=== PATIENT | male | born 1980 | race Caucasian/White ===

== ENCOUNTER 2018-03-21 14:47 | Inpatient (IN) | payer OTHER ==
[2018-03-21 17:03] VITALS: BMI 23.7
--- NOTE | 2018-03-21 17:48 | HP ---
"COWS - Scale Resting Pulse: 2= [place] 101-120 Sweatin= Chills/Flushing Restless Observation: 1= Difficult to Sit Still Pupil Size: 2= Moderately Dilated (Pupils = 5 mm) Bone or Joint Aches: 0= None Runny Nose/ Eye Tearin= Nasal Congestion GI Upset > 30mins: 0= None Tremor Observation: 4= Gross Tremor/Twitching Yawning Observation: 0= None Anxiety or Irritability: 4=Extreme Anxiety (and very irritable) Goose Flesh Skin: 0=Smooth Skin COWS Score: 15 CIWA Score - Admission Criteria OASAS Guidelines: Admission for Medically Managed Detox: Requires at least one of the followin. CIWA greater than 12 2. Seizures within the past 24 hours 3. Delirium tremens within the past 24 hours 4. Hallucinations within the past 24 hours 5. Acute intervention needed for co occurring medical disorder 6. Acute intervention needed for co occurring psychiatric disorder 7. Severe withdrawal that cannot be handled at a lower level of care (continued vomiting, continued diarrhea, abnormal vital signs) requiring intravenous medication and/or fluids 8. Admission ROS [facility] Chief Complaint: Here for heroin withdrawal. Allergies/Adverse Reactions: Allergies Allergy/AdvReac Type Severity Reaction Status Date / Time No Known Allergies Allergy Verified 03/21/18 18:08 History of Present Illness: I'm here to get off heroin. Heroin use began at age 16. Uses IV. States does not share needles or works. Cocaine use began at age 16. Uses IV and occ smokes. Marijuana use began at age 14. Nicotine use began at age 12. Denies hx seizures, blackouts or overdoses. Has had prior attempts at methadone treatment but has not been able to maintain sobriety. Last treamtent program in June 2017. Longest length of sobriety, even while on methadone was approx 2 days. Denies significant PMH/PSH. Search Terms: Petey Padron, 1980 Search Date: 03/21/2018 06:24:47 PM The Drug Utilization Report below displays all of the controlled substance prescriptions, if any, that your patient has filled in the last twelve months. The information displayed on this report is compiled from pharmacy submissions to the Department, and accurately reflects the information as submitted by the pharmacies. This report was requested by: Cassie Wells | Reference #: [id number] There are no results for the search terms that you entered. Exam Limitations: No Limitations - Ebola screening Have you traveled outside of the country in the last 21 days: No (N) Have you had contact with anyone from an Ebola affected area: No Have you been sick,other than usual withdrawal symptoms: No Do you have a fever: No - Review of Systems Constitutional: Diaphoresis EENT: reports: Nose Congestion Respiratory: reports: No Symptoms reported Cardiac: reports: No Symptoms Reported GI: reports: No Symptoms Reported : reports: No Symptoms Reported Musculoskeletal: reports: No Symptoms Reported Integumentary: reports: No Symptoms Reported Neuro: reports: Tremors Endocrine: reports: No Symptoms Reported Hematology: reports: No Symptoms Reported Psychiatric: reports: Orientated x3, Agitated, Anxious, Depressed (Denies thoughts of harming self or others.) Patient History - PPD History Previous Implant?: Yes Documented Results: Negative w/o proof Implanted On Prior [facility] Admission?: No PPD to be Administered?: Yes - Smoking Cessation Smoking history: Current every day smoker Have you smoked in the past 12 months: Yes Aproximately how many cigarettes per day: 20 Hx Chewing Tobacco Use: No Initiated information on smoking cessation: Yes 'Breaking Loose' booklet given: 03/21/18 - Substance & Tx. History Hx Alcohol Use: No Hx Substance Use: Yes Substance Use Type: Cocaine, Heroin, Marijuana Hx Substance Use Treatment: Yes (detox, rehab, [facility] (left 05/2017)) Admission Physical Exam BHS - Vital Signs Vital Signs: Vital Signs - 24 hr 03/21/18 17:01 Temperature 98.8 F Pulse Rate 103 H Respiratory 18 Rate Blood Pressure 127/88 - Physical General Appearance: Yes: Moderate Distress, Tremorous, Irritable, Sweating, Anxious HEENTM: Yes: EOMI, Hearing grossly Normal, Normocephalic, Normal Voice, JJ ( Pupils = 5 mm), Pharynx Normal, Nasal Congestion, Other (Cobbled tongue with thick whitish mucous and dry mucous membranes.) Respiratory: Yes: Lungs Clear, Normal Breath Sounds, No Respiratory Distress Neck: Yes: No masses,lesions,Nodules, Supple Breast: Yes: Breast Exam Deferred Cardiology: Yes: Regular Rhythm, S1, S2, Tachycardia (Most like r/t withdrawal symptoms.) Abdominal: Yes: Non Tender, Flat, Soft, Increased Bowel Sounds Genitourinary: Yes: Within Normal Limits Back: Yes: Normal Inspection Musculoskeletal: Yes: full range of Motion, Gait Steady Extremities: Yes: Normal Capillary Refill, Normal Range of Motion, Non-Tender, Tremors (Gross tremors when arms elevated) Neurological: Yes: surveillance officer II-XII NML intact, Fully Oriented, Motor Strength 5/5 Integumentary: Yes: Normal Color, Dry (Decreased skin turgor), Warm, Track Sanchez (Multiple old and new track sanchez without increased warmth or tenderness.) Lymphatic: Yes: Within Normal Limits - Diagnostic (1) Opioid dependence with withdrawal Current Visit: Yes Status: Acute (2) Cocaine dependence, uncomplicated Current Visit: Yes Status: Chronic (3) Cannabis dependence Current Visit: Yes Status: Chronic (4) Tinea pedis Current Visit: Yes Status: Chronic Qualifiers: Laterality: bilateral Qualified Code(s): B35.3 - Tinea pedis (5) Tachycardia Current Visit: Yes Status: Acute Cleared for Admission [facility] - Detox or Rehab [facility] Level of Care: Medically Managed Detox Regimen/Protocol: Methadone [facility] Breath Alcohol Content Breath Alcohol Content: 0 Urine Drug Screen - Results Drug Screen Negative: No Urine Drug Screen Results: THC-Marijuana, MARTÍN-Cocaine, OPI-Opiates"
[2018-03-21] MEDS ORDERED: NICOTINE POLACRILEX 2 MG GUM BC PRN (18:08)
[2018-03-21] MEDS ORDERED: MAGNESIUM HYDROX 2400MG/30ML ORAL SUSPENSION 30 ML CUP PO PRN (18:08)
[2018-03-21] MEDS ORDERED: MAGNESIUM CITRATE 300 ML BOTTLE PO PRN (18:08)
[2018-03-21] MEDS ORDERED: IBUPROFEN 400 MG TABLET (FP) PO PRN (18:08)
[2018-03-21] MEDS ORDERED: MENTHOL/PHENOL 1 EACH UD MM PRN (18:08)
[2018-03-21] MEDS ORDERED: ACETAMINOPHEN 325 MG TABLET (FP) PO PRN (18:08)
[2018-03-21] MEDS ORDERED: MAG HYDROX/AL HYDROX/SIMETH 30 ML UNIT-DOSE CUP PO PRN (18:08)
[2018-03-21] MEDS ORDERED: LOPERAMIDE HCL 2 MG CAPSULE PO PRN (18:08)
[2018-03-21] MEDS ORDERED: METHADONE HCL 10 MG TABLET (FOR DETOX USE ONLY) PO ONE ×2 (18:08→23:00)
[2018-03-21] MEDS: THIAMINE HCL 100 MG TABLET (FP) PO SCH (22:46)
[2018-03-21] MEDS: TOLNAFTATE 1% CREAM 15 GM TUBE TP SCH (22:47)
[2018-03-22 01:51] LABS: URINE APPEARANCE SLCLOUDY; URINE BILIRUBIN NEGATIVE (<2.0 mg/dL); URINE COLOR YELLOW; URINE GLUCOSE (UA) NEGATIVE (NEGATIVE); URINE KETONE NEGATIVE (NEGATIVE); URINE LEUK ESTERASE NEGATIVE (NEGATIVE); URINE NITRITE NEGATIVE (NEGATIVE); URINE PROTEIN NEGATIVE (NEGATIVE); URINE UROBILINOGEN 4.0 E.U/dl mg/dL (0.2-1.0)
[2018-03-22] MEDS ORDERED: METHADONE HCL 10 MG TABLET (FOR DETOX USE ONLY) PO ONE (10:00)
[2018-03-22] MEDS: diazePAM 5 MG TABLET PO PRN ×2 (10:08→22:18)
[2018-03-22] MEDS: PRENATAL VITAMINS W/ FOLIC ACID TABLET (FP) PO SCH (10:09)
[2018-03-22] MEDS: TOLNAFTATE 1% CREAM 15 GM TUBE TP SCH ×2 (10:11→22:17)
[2018-03-22] MEDS: NICOTINE 21 MG/24 HOURS TOPICAL PATCH TD SCH (10:11)
[2018-03-22 10:58] LABS: HEMATOCRIT 43.1 % (35.4-49); HEMOGLOBIN 13.9 GM/dL (11.7-16.9); MCH 26.9 pg (25.7-33.7); MCHC 32.3 g/dl (32.0-35.9); MEAN CELL VOLUME 83.2 fl (80-96); MEAN PLT VOLUME 10.3 fl (7.5-11.1); PLATELET COUNT 152 K/MM3 (134-434); RBC 5.17 M/mm3 (4.00-5.60); RDW 14.5 % (11.9-15.9); WHITE BLOOD COUNT 6.1 K/mm3 (4.0-10.0)
--- NOTE | 2018-03-22 11:03 | PN ---
BHS COWS - Scale Resting Pulse: 0= [place] 80 or Below Sweatin=Flushed/Facial Moisture Restless Observation: 1= Difficult to Sit Still Pupil Size: 0= Normal to Room Light Bone or Joint Aches: 2= Severe Diffuse Aches Runny Nose/ Eye Tearin= Runny Nose/Eyes GI Upset > 30mins: 2= Nausea/Diarrhea Tremor Observation of Outstretched Hands: 2= Slight Tremor Visible Yawning Observation: 2= >3x During Session Anxiety or Irritability: 2=Irritable/Anxious Goose Flesh Skin: 0=Smooth Skin COWS Score: 15 BHS Progress Note (SOAP) Subjective: restless body aches sweats shakes interrupted sleep agitation Objective: 03/22/18 11:01 Vital Signs Temperature 97.9 F 03/22/18 09:58 Pulse Rate 75 03/22/18 09:58 Respiratory Rate 18 03/22/18 09:58 Blood Pressure 134/64 03/22/18 09:58 O2 Sat by Pulse Oximetry (%) Laboratory Tests 03/21/18 22:25 Urine Color Yellow Urine Appearance Slcloudy Urine pH 6.0 Ur Specific [place] 1.026 Urine Protein Negative Urine Glucose (UA) Negative Urine Ketones Negative Urine Blood Negative Urine Nitrite Negative Urine Bilirubin Negative Urine Urobilinogen 4.0 e.u/dl Ur Leukocyte Esterase Negative labs pending aaox3 ambulating no acute distress Assessment: 03/22/18 11:02 withdrawal sx Plan: continue detox increase fluids labs pending
[2018-03-22 11:40] LABS: ALBUMIN 3.2 g/dl (3.4-5.0); ALK PHOS 89 U/L (45-117); ANION GAP 6 MMOL/L (8-16); BILIRUBIN,TOTAL 0.6 mg/dL (0.2-1); BLOOD UREA NITROGEN 16 mg/dL (7-18); CALCIUM 8.4 mg/dL (8.5-10.1); CHLORIDE 108 mmol/L (98-107); CO2 28 mmol/L (21-32); GLUCOSE,RANDOM 90 mg/dL (74-106); SGOT/AST 40 U/L (15-37); SGPT/ALT 51 U/L (13-61); SODIUM 141 mmol/L (136-145); TOT PROT 6.8 g/dl (6.4-8.2)
--- NOTE | 2018-03-22 12:16 | EKG ---
Test Reason : Blood Pressure : / mmHG Vent. Rate : 074 BPM Atrial Rate : 074 BPM P-R Int : 154 ms QRS Dur : 100 ms QT Int : 396 ms P-R-T Axes : 061 070 050 degrees QTc Int : 439 ms NORMAL SINUS RHYTHM INCOMPLETE RIGHT BUNDLE BRANCH BLOCK BORDERLINE ECG NO PREVIOUS ECGS AVAILABLE Confirmed by WANDY BANKS, AYUSH ([id number]) on 03/22/2018 12:16:11 PM Referred By: Confirmed By:AYUSH SABA MD
[2018-03-22] MEDS: MELATONIN 5 MG TABLETS PO PRN (22:17)
[2018-03-22] MEDS: THIAMINE HCL 100 MG TABLET (FP) PO SCH (22:17)
[2018-03-23] MEDS ORDERED: METHADONE HCL 5 MG TABLET (FOR DETOX USE ONLY) PO ONE (10:00)
[2018-03-23] MEDS: PRENATAL VITAMINS W/ FOLIC ACID TABLET (FP) PO SCH (10:35)
[2018-03-23] MEDS: diazePAM 5 MG TABLET PO PRN ×2 (10:35→22:07)
[2018-03-23] MEDS: TOLNAFTATE 1% CREAM 15 GM TUBE TP SCH ×2 (10:36→22:05)
[2018-03-23] MEDS: NICOTINE 21 MG/24 HOURS TOPICAL PATCH TD SCH (10:36)
--- NOTE | 2018-03-23 10:46 | PN ---
BHS COWS - Scale Resting Pulse: 1= [place] 81-100 Sweatin=Flushed/Facial Moisture Restless Observation: 1= Difficult to Sit Still Pupil Size: 0= Normal to Room Light Bone or Joint Aches: 2= Severe Diffuse Aches Runny Nose/ Eye Tearin= Nasal Congestion GI Upset > 30mins: 0= None Tremor Observation of Outstretched Hands: 2= Slight Tremor Visible Yawning Observation: 1= 1-2x During Session Anxiety or Irritability: 2=Irritable/Anxious Goose Flesh Skin: 0=Smooth Skin COWS Score: 12 BHS Progress Note (SOAP) Subjective: chills sweats restless body aches interrupted sleep Objective: 03/23/18 10:47 Vital Signs Temperature 97.3 F L 03/23/18 09:11 Pulse Rate 84 03/23/18 09:11 Respiratory Rate 18 03/23/18 09:11 Blood Pressure 146/64 03/23/18 09:11 O2 Sat by Pulse Oximetry (%) Laboratory Tests 03/21/18 03/22/18 03/22/18 22:25 07:00 07:00 WBC 6.1 RBC 5.17 Hgb 13.9 Hct 43.1 MCV 83.2 MCH 26.9 MCHC 32.3 RDW 14.5 Plt Count 152 MPV 10.3 Sodium 141 Potassium 4.0 Chloride 108 H Carbon Dioxide 28 Anion Gap 6 L BUN 16 Creatinine 1.0 Creat Clearance w eGFR > 60 Random Glucose 90 Calcium 8.4 L Total Bilirubin 0.6 AST 40 H ALT 51 Alkaline Phosphatase 89 Total Protein 6.8 Albumin 3.2 L Urine Color Yellow Urine Appearance Slcloudy Urine pH 6.0 Ur Specific [place] 1.026 Urine Protein Negative Urine Glucose (UA) Negative Urine Ketones Negative Urine Blood Negative Urine Nitrite Negative Urine Bilirubin Negative Urine Urobilinogen 4.0 e.u/dl Ur Leukocyte Esterase Negative RPR Titer 03/22/18 07:00 WBC RBC Hgb Hct MCV MCH MCHC RDW Plt Count MPV Sodium Potassium Chloride Carbon Dioxide Anion Gap BUN Creatinine Creat Clearance w eGFR Random Glucose Calcium Total Bilirubin AST ALT Alkaline Phosphatase Total Protein Albumin Urine Color Urine Appearance Urine pH Ur Specific [place] Urine Protein Urine Glucose (UA) Urine Ketones Urine Blood Urine Nitrite Urine Bilirubin Urine Urobilinogen Ur Leukocyte Esterase RPR Titer Nonreactive labs noted aaox3 ambulating no acute distress Assessment: 03/23/18 10:47 withdrawal sx Plan: continue detox increase fluids flexiril 10mg prn clonidine 0.1 bid with parameters ordered
[2018-03-23] MEDS ORDERED: CYCLOBENZAPRINE HCL 10 MG TABLET (FP) PO PRN (10:49)
[2018-03-23] MEDS: cloNIDine HCL 0.1 MG TABLET PO SCH ×2 (11:46→22:04)
[2018-03-23] MEDS: THIAMINE HCL 100 MG TABLET (FP) PO SCH (22:04)
[2018-03-23] MEDS: MELATONIN 5 MG TABLETS PO PRN (22:05)
[2018-03-24 09:31] VITALS: BP 126/78; PULSE 79; TEMP 97.7
[2018-03-24] MEDS ORDERED: METHADONE HCL 5 MG TABLET (FOR DETOX USE ONLY) PO ONE (10:00)
--- NOTE | 2018-03-24 10:51 | DS ---
[facility] Detox Discharge Summary Admission Date: 03/21/18 Discharge Date: 03/24/18 - History Present History: Opioid Dependence Additional Comments: PATIENT EVALUATED AT BEDSIDE. C/O FEELING RESTLESS AND SWEATY. PATIENT INFORMED PROVIDER HE WANTED TO SIGN OUT AMA. PATIENT ENCOURAGED TO COMPLETE DETOX AND DISCUSSED RISK FACTORS OF RELAPSE IF HE SIGNED OUT. PATIENT REFUSED TO COMPLETE DETOX AND STATED HE WILL FOLLOW UP WITH [facility] ON MONDAY TO DISCUSS MAT WITH SUBOX[facility]. PATIENT OFFERED TO STAY AND HAVE COUNSELOR ASSIST WITH APPOINTMENT ON Monday03/26/18 BUT PATIENT REFUSED AND SAID HE WILL FOLLOW UP WITH CLINIC ON HIS OWN. PATIENT ADVISED TO SEEK MEDICAL ATTENTION IF WITHDRAWAL SX WORSEN. NARCAN KIT SENT TO [facility]. - Physical Exam Results Vital Signs: Vital Signs Temperature 97.7 F 03/24/18 09:30 Pulse Rate 79 03/24/18 09:30 Respiratory Rate 18 03/24/18 09:30 Blood Pressure 126/78 03/24/18 09:30 O2 Sat by Pulse Oximetry (%) - Medication Discharge Medications: Ambulatory Orders Naloxone HCl [Narcan] 4 mg NS PRN PRN #1 kit 03/24/18 - Diagnosis (1) Opioid dependence with withdrawal Current Visit: Yes Status: Acute - AMA Did Patient Leave Against Medical Advice: Yes
[2018-03-25] MEDS ORDERED: METHADONE HCL 10 MG TABLET (FOR DETOX USE ONLY) PO ONE (10:00)
[2018-03-26] MEDS ORDERED: METHADONE HCL 5 MG TABLET (FOR DETOX USE ONLY) PO ONE (06:00)
== END 2018-03-24 10:31 | disposition left against medical advice (07) | DRG 770 ==
LOC: YASAS 14:47 → Y6N 19:26
PROC: HZ2ZZZZ Detoxification Services for Substance Abuse Treatment (ICD-10-PCS; principal; 2018-03-21)
DX: F11.23 Opioid dependence with withdrawal (principal); F14.20 Cocaine dependence, uncomplicated; F12.20 Cannabis dependence, uncomplicated; R00.0 Tachycardia, unspecified; B35.3 Tinea pedis
CPT/HCPCS: 36415; 80053; 81003; 85027; 86593; 93005; 93010; J0735

== ENCOUNTER 2024-02-28 14:56 | Inpatient (IN) | payer OTHER ==
[2024-02-28 15:26] VITALS: BMI 24.9
[2024-02-28] MEDS ORDERED: MAGNESIUM HYDROX 2400MG/30ML ORAL SUSPENSION 30 ML CUP PO PRN (16:09)
[2024-02-28] MEDS ORDERED: BENZONATATE 200 MG CAPSULE PO PRN (16:09)
[2024-02-28] MEDS ORDERED: BENZOCAINE/MENTHOL (CHLORASEPTIC ) LOZENGE MM PRN (16:09)
[2024-02-28] MEDS ORDERED: LOPERAMIDE HCL 2 MG CAPSULE PO PRN (16:09)
[2024-02-28] MEDS ORDERED: IBUPROFEN 400 MG TABLET (FP) PO PRN (16:09)
[2024-02-28] MEDS ORDERED: NALOXONE (NARCAN) HCL 4 MG/0.1 ML SPRAY NS PRN (16:09)
[2024-02-28] MEDS ORDERED: NICOTINE POLACRILEX 4 MG LOZENGE BC PRN (16:09)
[2024-02-28] MEDS ORDERED: ACETAMINOPHEN 325 MG TABLET (FP) PO PRN (16:09)
[2024-02-28] MEDS ORDERED: IBUPROFEN 600 MG TABLET (FP) PO PRN (16:09)
[2024-02-28] MEDS ORDERED: guaiFENesin 600 MG TABLET.ER (FP) PO PRN (16:09)
[2024-02-28] MEDS ORDERED: BISMUTH SUBSALICYLATE 524 MG/30 ML PO PRN (16:09)
[2024-02-28] MEDS ORDERED: NICOTINE POLACRILEX 4 MG GUM BUC PRN (16:09)
[2024-02-28] MEDS ORDERED: MAG HYDROX/AL HYDROX/SIMETH 30 ML UNIT-DOSE CUP PO PRN (16:09)
[2024-02-28] MEDS ORDERED: DICYCLOMINE HCL 10 MG CAPSULE PO PRN (16:09)
[2024-02-28] MEDS ORDERED: POLYETHYLENE GLYCOL (HEALTHYLAX) 3350 17 GM PACKET PO PRN (16:09)
[2024-02-28] MEDS: cloNIDine HCL 0.1 MG TABLET PO SCH (19:26)
[2024-02-28] MEDS ORDERED: diazePAM 5 MG TABLET ONE (19:29)
[2024-02-28] MEDS ORDERED: methaDONE HCL 10 MG TABLET (FOR DETOX USE ONLY) ONE (19:30)
[2024-02-28] MEDS: diazePAM 5 MG TABLET PO SCH (19:39)
[2024-02-28] MEDS: methaDONE HCL 10 MG TABLET (FOR DETOX USE ONLY) PO ONE (19:39)
[2024-02-28] MEDS: MELATONIN 5 MG TABLETS PO SCH (22:16)
[2024-02-28] MEDS: THIAMINE 100 MG TABLET PO SCH (22:16)
[2024-02-28] MEDS: BUPRENORPHINE/NALOXONE 0.5 MG/0.125 MG FILM SL ONE (22:17)
[2024-02-29] MEDS: PRENATAL VITAMINS W/ FOLIC ACID TABLET (FP) PO SCH (10:23)
[2024-02-29] MEDS: BUPRENORPHINE/NALOXONE 0.5 MG/0.125 MG FILM SL SCH (10:23)
[2024-02-29] MEDS: NICOTINE 21 MG/24 HOURS TOPICAL PATCH TD SCH (10:23)
[2024-02-29 11:29] LABS: HEMATOCRIT 39.3 % (35.4-49); HEMOGLOBIN 12.9 GM/dL (11.7-16.9); MCH 27.2 pg (25.7-33.7); MCHC 32.7 g/dl (32.0-35.9); MEAN CELL VOLUME 83.4 fl (80-96); MEAN PLT VOLUME 10.1 fl (7.5-11.1); PLATELET COUNT 132 10^3/uL (134-434); RBC 4.72 M/mm3 (4.00-5.60); RDW 15.8 % (11.9-15.9); WHITE BLOOD COUNT 7.3 K/mm3 (4.0-10.0)
[2024-02-29 12:43] LABS: CHLORIDE 106 mmol/L (98-107); POTASSIUM 3.3 mmol/L (3.5-5.1); SODIUM 140 mmol/L (136-145)
[2024-02-29 12:46] LABS: ALBUMIN 2.9 g/dl (3.4-5.0); ANION GAP 9 mmol/L (4-13); BLOOD UREA NITROGEN 18.4 mg/dL (7-18); CO2 25 mmol/L (21-32); GLUCOSE,RANDOM 86 mg/dL (74-106)
[2024-02-29 12:49] LABS: SGOT/AST 48 U/L (15-37); SGPT/ALT 86 U/L (13-61)
[2024-02-29 12:50] LABS: BILIRUBIN,TOTAL 0.1 mg/dL (0.2-1); TOT PROT 5.9 g/dl (6.4-8.2)
[2024-02-29 12:52] LABS: ALK PHOS 98 U/L (45-117)
[2024-02-29] MEDS: POTASSIUM CHLORIDE ORAL LIQUID 20 MEQ/15 ML PO ONE (14:04)
[2024-02-29] MEDS: METHOCARBAMOL 500 MG TABLET PO PRN (22:04)
[2024-03-01] MEDS: diazePAM 5 MG TABLET PO SCH (05:24)
[2024-03-01] MEDS: methaDONE HCL 10 MG TABLET (FOR DETOX USE ONLY) PO ONE (10:29)
[2024-03-01] MEDS: BUPRENORPHINE/NALOXONE 2 MG/0.5 MG FILM PACKET SL SCH (10:30)
[2024-03-01] MEDS: diazePAM 5 MG TABLET PO PRN (17:19)
[2024-03-02] MEDS: diazePAM 5 MG TABLET PO SCH (05:28)
[2024-03-02] MEDS: BUPRENORPHINE/NALOXONE 4 MG/1 MG FILM PACKET SL SCH (09:59)
[2024-03-02] MEDS: ONDANSETRON *ODT* 4 MG TABLET SL PRN (10:01)
[2024-03-02] MEDS: traZODone HCL 50 MG TABLET (FP) PO SCH (21:27)
[2024-03-02] MEDS: hydrOXYzine PAMOATE 25 MG CAPSULE (FP) PO PRN (21:29)
[2024-03-03] MEDS: diazePAM 5 MG TABLET PO ONE (05:45)
[2024-03-03] MEDS: methaDONE HCL 10 MG TABLET (FOR DETOX USE ONLY) PO ONE (10:04)
[2024-03-03] MEDS: BUPRENORPHINE/NALOXONE 8 MG/2 MG FILM PACKET SL SCH (10:05)
[2024-03-04] MEDS: BUPRENORPHINE/NALOXONE 8 MG/2 MG FILM PACKET SL SCH (10:13)
[2024-03-04] MEDS: NALOXONE (NYS OPIOID OVERDOSE PROGRAM) 4 MG/0.1 ML SPRAY NS SCH (10:13)
[2024-03-04 16:43] VITALS: BP 136/86; PULSE 68; RESP 18; TEMP 97.8
== END 2024-03-04 17:49 | disposition other institution (70) | DRG 773 ==
LOC: YASAS 14:56 → Y3N 19:56
PROVIDERS: ADMIT Allergy & Immunology; ATTEND Surgery
PROC: HZ2ZZZZ Detoxification Services for Substance Abuse Treatment (ICD-10-PCS; principal; 2024-02-28)
DX: F11.23 Opioid dependence with withdrawal (principal); F13.230 Sedative, hypnotic or anxiolytic dependence with withdrawal, uncomplicated; F12.20 Cannabis dependence, uncomplicated; F17.210 Nicotine dependence, cigarettes, uncomplicated; F20.9 Schizophrenia, unspecified; F31.9 Bipolar disorder, unspecified; F41.9 Anxiety disorder, unspecified; F19.24 Other psychoactive substance dependence with psychoactive substance-induced mood disorder; E87.6 Hypokalemia; G47.00 Insomnia, unspecified
CPT/HCPCS: 36415; 80053; 80305; 80307; 84132; 85027; 86780; 93005; 93010; Q0162

== ENCOUNTER 2024-03-04 18:10 | Inpatient (IN) | payer OTHER ==
[2024-03-04] MEDS ORDERED: POLYETHYLENE GLYCOL (HEALTHYLAX) 3350 17 GM PACKET PO PRN (18:35)
[2024-03-04] MEDS ORDERED: NALOXONE HCL 0.4 MG/ML VIAL IVPUSH PRN (18:35)
[2024-03-04] MEDS ORDERED: IBUPROFEN 400 MG TABLET (FP) PO PRN (18:35)
[2024-03-04] MEDS ORDERED: MAGNESIUM HYDROX 2400MG/30ML ORAL SUSPENSION 30 ML CUP PO PRN (18:35)
[2024-03-04] MEDS ORDERED: ACETAMINOPHEN 325 MG TABLET (FP) PO PRN (18:35)
[2024-03-04] MEDS ORDERED: BENZOCAINE/MENTHOL (CHLORASEPTIC ) LOZENGE MM PRN (18:35)
[2024-03-04] MEDS ORDERED: MAG HYDROX/AL HYDROX/SIMETH 30 ML UNIT-DOSE CUP PO PRN (18:35)
[2024-03-04] MEDS ORDERED: NALOXONE (NARCAN) HCL 4 MG/0.1 ML SPRAY NS PRN (18:35)
[2024-03-04] MEDS ORDERED: guaiFENesin 600 MG TABLET.ER (FP) PO PRN (18:35)
[2024-03-04] MEDS ORDERED: BENZONATATE 200 MG CAPSULE PO PRN (18:35)
[2024-03-04] MEDS ORDERED: LOPERAMIDE HCL 2 MG CAPSULE PO PRN (18:35)
[2024-03-04] MEDS ORDERED: NICOTINE POLACRILEX 2 MG GUM BUC PRN (18:37)
[2024-03-04] MEDS: MELATONIN 5 MG TABLETS PO SCH (21:16)
[2024-03-04] MEDS: THIAMINE 100 MG TABLET PO SCH (21:18)
[2024-03-04] MEDS: BUPRENORPHINE/NALOXONE 8 MG/2 MG FILM PACKET SL SCH (21:18)
[2024-03-04] MEDS: hydrOXYzine PAMOATE 25 MG CAPSULE (FP) PO PRN (21:19)
[2024-03-04] MEDS: traZODone HCL 100 MG TABLET (FP) PO SCH (21:22)
[2024-03-05] MEDS: PRENATAL VITAMINS W/ FOLIC ACID TABLET (FP) PO SCH (10:43)
[2024-03-05] MEDS: IBUPROFEN 600 MG TABLET (FP) PO PRN (18:39)
[2024-03-06] MEDS: BUPRENORPHINE/NALOXONE 8 MG/2 MG FILM PACKET SL SCH (17:45)
[2024-03-06] MEDS: METHOCARBAMOL 500 MG TABLET PO PRN (21:29)
[2024-03-08] MEDS: LIDOCAINE 5% TOPICAL PATCH TP SCH (15:48)
[2024-03-08] MEDS: BUPRENORPHINE/NALOXONE 4 MG/1 MG FILM PACKET SL SCH (21:35)
[2024-03-08] MEDS: LIDOCAINE PATCH REMOVAL MC SCH (21:37)
[2024-03-18 07:05] VITALS: BP 136/75; PULSE 72; RESP 16; TEMP 96.9
[2024-03-18] MEDS: NALOXONE (NYS OPIOID OVERDOSE PROGRAM) 4 MG/0.1 ML SPRAY NS SCH (09:10)
== END 2024-03-18 09:22 | disposition home or self-care (01) | DRG 772 ==
LOC: YASAS 18:10 → Y3NR 18:11 → Y3E 03-05 12:33
PROVIDERS: ADMIT Psychiatry & Neurology Pain Medicine; ATTEND Psychiatry & Neurology Pain Medicine
PROC: HZ42ZZZ Group Counseling for Substance Abuse Treatment, Cognitive-Behavioral (ICD-10-PCS; principal; 2024-03-04)
DX: F11.20 Opioid dependence, uncomplicated (principal); F13.20 Sedative, hypnotic or anxiolytic dependence, uncomplicated; F12.20 Cannabis dependence, uncomplicated; F17.210 Nicotine dependence, cigarettes, uncomplicated; F20.9 Schizophrenia, unspecified; F31.9 Bipolar disorder, unspecified; F19.24 Other psychoactive substance dependence with psychoactive substance-induced mood disorder; B35.3 Tinea pedis; M54.50 Low back pain, unspecified; G89.29 Other chronic pain; R00.0 Tachycardia, unspecified